=== PATIENT | female | born 2000 | race African-American/Black ===

== ENCOUNTER 2023-07-26 03:25 | Emergency (ER) | payer MEDICAID ==
[~2023-07-26] VITALS: Ht 162.6 cm; Wt 49.0 kg
[2023-07-26] MEDS ORDERED: LORAZEPAM 1 MG TABLET ONE (04:02)
[2023-07-26] MEDS: LORAZEPAM 0.5 MG TABLET PO ONE (04:03)
[2023-07-26] MEDS ORDERED: LORA0.5T48 PO (05:07)
[2023-07-26 08:22] VITALS: BP 111/79; O2SAT 100
== END 2023-07-26 08:28 | disposition home or self-care (01) ==
LOC: ER 03:28
DX: F41.9 Anxiety disorder, unspecified (principal); F10.10 Alcohol abuse, uncomplicated; J45.909 Unspecified asthma, uncomplicated; F31.9 Bipolar disorder, unspecified; F20.9 Schizophrenia, unspecified; Z79.899 Other long term (current) drug therapy; Y90.9 Presence of alcohol in blood, level not specified; Z91.018 Allergy to other foods
CPT/HCPCS: A4606; A4663

== ENCOUNTER 2023-07-29 05:47 | Emergency (ER) | payer MEDICAID ==
[~2023-07-29] VITALS: Ht 162.6 cm; Wt 49.9 kg
[~2023-07-29 05:47] MED LIST: LORA0.5T48 PO
[2023-07-29 05:51] VITALS: O2SAT 98
== END 2023-07-29 06:23 | disposition home or self-care (01) ==
LOC: ER 05:51
DX: N63.0 Unspecified lump in unspecified breast (principal); J45.909 Unspecified asthma, uncomplicated; Z91.018 Allergy to other foods; Z79.899 Other long term (current) drug therapy
CPT/HCPCS: A4606; A4663